=== PATIENT | male | born 1955 ===

== ENCOUNTER 2018-03-30 05:34 | Day surgery (SDC) | payer OTHER ==
--- NOTE | 2018-03-24 22:47 | HP ---
CC: Dr. Lucas at [facility] * ADMISSION HISTORY AND PHYSICAL: DATE OF ADMISSION: 03/30/18 ATTENDING SURGEON: Dr. Edmund Garza * (NATHALIA Calvin, dictating). CHIEF COMPLAINT: Right inguinal hernia. HISTORY OF PRESENT ILLNESS: This is a 62-year-old male who beginning about a year ago noticed a bulge in the right groin. This is present most all the time when he is upright and active, but self-reduces when he is supine. It has increased in size somewhat but has been minimally symptomatic, i.e., minor discomfort but no actual pain. He has not had any symptoms to suggest incarceration or strangulation. He was seen in the office by Dr. Garza on 12/09, at which time, exam confirmed the presence of a large reducible right inguinal hernia. No hernia was noted on the left. Dr. Garza has discussed with him the indications for surgery, the options for repair, the risks, benefits, and alternatives. He understands the expected perioperative course and would like to proceed as scheduled with laparoscopic repair of right inguinal hernia with mesh. PAST MEDICAL HISTORY: Seasonal and environmental allergies, obstructive sleep apnea (on CPAP), obesity. PAST SURGICAL HISTORY: His only prior surgery is resection of a right parotid tumor (benign) in 1995. CURRENT MEDICATIONS: None (he does use fluticasone nasal spray, cetirizine, and Benadryl p.r.n. when his allergies are bothering him). DRUG ALLERGIES: None. FAMILY HISTORY: Negative for anesthesia problems, bleeding or clotting disorders. SOCIAL HISTORY: Patient is . 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 He denies use of tobacco. He drinks up to 500 mL of wine per day but less on some days. He denies any other recreational drug use. He does exercise, i.e., runs on an almost daily basis. REVIEW OF SYSTEMS: General: No recent constitutional symptoms or acute illnesses. Weight has been stable. HEENT: He has had recent dental work done but no other acute problems noted. Cardiovascular: No chest pain, palpitations , history of heart murmur, or hypertension. Respiratory: No history of asthma , chronic cough, or shortness of breath. GI: No problems reported. His last colonoscopy was 2016, at which time benign polyps were removed with a recommended 5-year followup. : No problems reported. Endocrine: No diabetes or thyroid dysfunction. PHYSICAL EXAMINATION GENERAL: Well-nourished, well-developed male, in no acute distress. VITAL SIGNS: Height 70.5 inches, weight 216 pounds. Blood pressure 124/80, pulse 58, respirations 16. HEENT: Pupils equal and round, reactive. EOMs intact. No conjunctival pallor. Oropharynx, teeth in good repair. No intraoral lesions. NECK: No lymphadenopathy, thyromegaly or masses. LUNGS: Clear to auscultation. No wheezes. HEART: Regular rate and rhythm. No murmur noted. ABDOMEN: Right inguinal hernia as noted per Dr. Garza's exam. No hernia on the left. He does have diastasis recti in the upper abdomen. The remainder of the abdomen is soft, nontender, and without palpable masses or organomegaly. GENITALIA: Not examined. RECTAL: Not done. BACK: No spinous process or CVA tenderness. EXTREMITIES: No edema. SKIN: Warm and dry, no suspicious rashes or lesions. NEUROLOGICAL: Grossly intact. IMPRESSION: Right inguinal hernia.. PLAN: Laparoscopic repair, right inguinal hernia with mesh. NATHALIA CALVIN [id number]/[facility] #: [id number] MTDD
[~2018-03-30 05:34] MED LIST: Buffered Lidocaine 0.9% SYRIN* 5 ML/SYR SYRINGE INTRADERM ONE
[2018-03-30] MEDS ORDERED: Lactated Ringers 1000 ML Bag* 1,000 ML IV SCH (06:00)
[2018-03-30] MEDS ORDERED: Acetaminophen TAB* 325 MG PO ONE (06:00)
[2018-03-30] MEDS ORDERED: Gabapentin CAP(*) 300 MG PO ONE (06:00)
[2018-03-30] MEDS ORDERED: Gabapentin CAP(*) 300 MG ONE (06:04)
[2018-03-30] MEDS ORDERED: ceFAZolin 2 GM PREMIX in ORs 2 GM/50 ML BAG IVPB ONE (06:04)
[2018-03-30] MEDS ORDERED: Acetaminophen TAB* 325 MG ONE (06:04)
[2018-03-30] MEDS ORDERED: Bupivacaine 0.25% W/EPI* 10 ML SDV ONE (06:34)
[2018-03-30] MEDS ORDERED: fentaNYL* 50 MCG/ML 2 ML VIAL (100 MCG VIAL) ONE (07:14)
[2018-03-30] MEDS ORDERED: Midazolam* 1 MG/ML 2 ML VIAL (2 MG) ONE ×2 (07:14→07:52)
[2018-03-30] MEDS ORDERED: Dexamethasone IV* 4 MG/ML 1 ML (4 MG) ONE ×2 (07:44→08:14)
[2018-03-30] MEDS ORDERED: Famotidine IV* 10 MG/ML 2 ML (20 mg) ONE (07:44)
[2018-03-30] MEDS ORDERED: Succinylcholine* 20 MG/ML 10 ML VIAL ONE (07:44)
[2018-03-30] MEDS ORDERED: Ketorolac INJ* 30 MG/ML 1 ML VIAL ONE (07:44)
[2018-03-30] MEDS ORDERED: Propofol* 10 MG/ML 20 ML BTL ONE (07:44)
[2018-03-30] MEDS ORDERED: Cisatracurium* 2 MG/ML MDV 5 ML ONE (07:44)
--- NOTE | 2018-03-30 08:41 | BRIEFOPN ---
Brief Operative Note - Surgery Procedures: Procedures Pre-OP Diagnoses: Right inguinal hernia Post-op Diagnosis: same Procedure: Laparoscopic right inguinal hernia repair with mesh Surgeon: Kayla Asst: Jose C Yootherenard: BULMARO Pool EBL: minimal IVF: 800cc LR Specimen: none Drains: none
[2018-03-30] MEDS ORDERED: DiMENhydriNATE IV* 50 MG/ML VIAL IV PUSH PRN (09:37)
[2018-03-30] MEDS ORDERED: Scopolamine 1.5 mg* PATCH TRANSDERM PRN (09:37)
[2018-03-30] MEDS ORDERED: fentaNYL* 50 MCG/ML 2 ML VIAL (100 MCG VIAL) IV PRN (09:37)
[2018-03-30] MEDS ORDERED: HYDROcodone/ACETAMIN 5-325 MG* 1 TAB PO PRN ×2 (09:37)
[2018-03-30] MEDS ORDERED: PROCHLORPERAZINE INJ 5 MG/ML 2 ML VIAL IV PRN (09:37)
[2018-03-30] MEDS ORDERED: Naloxone* 0.4 MG/ML 1 ML VIAL IV PRN (09:37)
[2018-03-30 10:45] VITALS: BP 136/81
--- NOTE | 2018-03-30 15:47 | OP ---
CC: Dr. Joey Lucas * DATE OF OPERATION: 03/30/18 - SDS DATE OF : 59 SURGEON: Edmund Garza MD STRATEGIC SOURCING CONSULTANT: Lizet Woodall NP ANESTHESIOLOGIST: Dr. Pool ANESTHESIA: General anesthesia. PRE-OP DIAGNOSIS: Right inguinal hernia. POST-OP DIAGNOSIS: Right inguinal hernia. OPERATIVE PROCEDURE: Laparoscopic right inguinal hernia repair with mesh. ESTIMATED BLOOD LOSS: Minimal. FLUIDS: 800 cc of crystalloid fluid given. SPECIMEN: None. DRAINS: None. DESCRIPTION OF PROCEDURE: The patient was identified in the preoperative area, he was marked, consent signed. He was then taken back to the operating room, placed on the operating room table in a supine position. Preoperative antibiotics were given. Sequential devices were placed on bilateral lower extremities. General anesthesia was induced. The patient's abdomen was clipped of hair and prepped and draped in the standard surgical fashion. A time -out was performed. An infraumbilical incision was made. This was deepened down to the anterior fascia on the right which was incised and entry into the preperitoneal plane was made. This was dissected with surgeon's finger and a 12-mm port was then inserted in the space. It was allowed to insufflate to a pressure of 12 mmHg. The patient tolerated the insufflation well. Camera was inserted and blunt dissection was carried out down to the pubic symphysis. Two additional 5-mm ports were then placed in the lower midline. Attention was turned towards the left side. The Max ligament was cleared off at this site, appeared intact. The Max ligament on the right was cleared off and a direct hernia was identified. We then opened up the area of [place] space laterally, identified the epigastric vessels and then returned back to the direct hernia. This was gently reduced and the tissue retracted out of the direct space. We then turned our attention to the indirect space. The dissection carried on until we saw the vas deferens. This included visualization of an indirect hernia that was then reduced. We placed an Endoloop 2-0 Vicryl over this and cut the hernia sac. I did not send this as a specimen. Next, the area with the whole myopectineal orifice cleared off. We then opened a large Bard 3DMax mesh, placed it into the preperitoneal plane and allowed it to unfurl. This was tacked at Max ligament with two absorbable tacks, and it laid laterally without any evidence of wrinkling. It covered the full space that we intended it to and we allowed the preperitoneal plane to collapse of air. Trocars were removed under direct vision. We then closed the anterior fascia at the umbilical port site with 0 Polysorb suture in a [id number] fashion, and 3 incisions were then closed with 4-0 Monocryl subcuticular sutures followed by Steri- Strips and sterile dressing. The patient tolerated the procedure well, was transferred to the PACU. [id number]/[facility] #: [id number] SALMA
[2018-04-02] MEDS ORDERED: Scopolamine PATCH Remove* 1 NOTE MISC PATCH OFF ONE (09:38)
== END 2018-03-30 11:12 | disposition home or self-care (01) ==
LOC: OR 05:34
PROVIDERS: ATTEND Surgery
DX: K40.90 Unilateral inguinal hernia, without obstruction or gangrene, not specified as recurrent (principal); G47.33 Obstructive sleep apnea (adult) (pediatric); J30.89 Other allergic rhinitis; E66.9 Obesity, unspecified
CPT/HCPCS: A9270-GY; C1781; J0330; J0690; J1100; J1885; J2250; J2704; J3010

== ENCOUNTER 2019-05-03 10:25 | Day surgery (SDC) | payer OTHER ==
--- NOTE | 2019-04-21 10:18 | HP ---
CC: Dr. Villavicencio [facility] * ADMISSION HISTORY AND PHYSICAL: DATE OF ADMISSION: 05/03/19 ATTENDING SURGEON: Dr. Ralph Garza.* (DICTATED BY NATHALIA MOLINA) CHIEF COMPLAINT: Recurrent right inguinal hernia. HISTORY OF PRESENT ILLNESS: This is a 63-year-old male who underwent laparoscopic repair of right inguinal hernia with mesh in March [address] Garza. The patient did have an apparent hematoma in the right groin following surgery that was confirmed by ultrasound and that eventually resolved without any further issues. However, subsequently in the fall of last year, the patient noticed after coughing that there was a new bulge in the right groin that has persisted since. He was seen by Dr. Garza in January and exam at that time confirmed the presence of a recurrent right inguinal hernia. The patient states that it has been minimally symptomatic with minor discomfort noted only while driving and/or with coughing. He has not had any symptoms to suggest incarceration or strangulation. He has not felt the need to reduce the hernia at any time. Dr. Garza has discussed with him the indications for repair and the method thereof (open approach with mesh). He understands the risks, benefits, and alternatives and would like to proceed as scheduled with open repair right inguinal hernia with mesh. PAST MEDICAL HISTORY: 1. Seasonal and environmental allergies. 2. Mood disorder/depression. 3. Obstructive sleep apnea (on CPAP). 4. Obesity. PAST SURGICAL HISTORY: Right inguinal herniorrhaphy with mesh as noted above. Right parotid tumor (benign) in 1995. CURRENT MEDICATIONS: Prozac 20 mg once daily. He does use some antihistamines and other allergy medications as needed but not at the present time. DRUG ALLERGIES: None. FAMILY HISTORY: Negative for anesthesia problems, bleeding, or clotting disorders. SOCIAL HISTORY: The patient is . 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 He denies use of tobacco. He drinks up to 500 mL of wine per day, but less on some days. He denies any other recreational drug use. He does [employer] and when weather permits he runs regularly. REVIEW OF SYSTEMS: General: No recent constitutional symptoms or acute illnesses. He states that his weight did increase somewhat this past summer ( about 10 pounds). HEENT: No recent acute problems noted. Cardiovascular: No chest pain, palpitations, or history of heart murmur. He notes that his blood pressure is up slightly that he relates to his weight. This has not required medication. Respiratory: He uses CPAP for sleep apnea. No history of asthma, chronic cough or shortness of breath. GI: No problems reported. Last colonoscopy was in 2017 with removal of benign polyps and recommended 5-year followup. : No problems reported. Endocrine: No diabetes or thyroid dysfunction. PHYSICAL EXAMINATION GENERAL: Well-nourished, well-developed male, in no acute distress. VITAL SIGNS: Height 70.5 inches, weight 223 pounds. Blood pressure 138/76, pulse 68, temperature is 97. HEENT: Pupils equal, round, reactive. EOMs intact. No conjunctival pallor. Oropharynx: Teeth in good repair. No intraoral lesions. NECK: No lymphadenopathy, thyromegaly, or masses. LUNGS: Clear to auscultation. No wheezes. HEART: Regular rate and rhythm. No murmur noted. ABDOMEN: Obese, soft, nontender to palpation. He does have diastasis recti in the upper abdomen. The remainder of the abdomen is soft, nontender, without palpable masses or organomegaly with the exception of the right groin where there is a visible mass in the standing position. This reduces easily when he is supine. No palpable hernia on the left. GENITALIA: Otherwise normal. RECTAL: Not done. BACK: No spinous process or CVA tenderness. EXTREMITIES: No edema. NEUROLOGIC: Grossly intact. SKIN: Warm and dry. No suspicious rashes or lesions. IMPRESSION: Recurrent right inguinal hernia. PLAN: Open repair, right inguinal hernia with mesh. NATHALIA MOLINA [id number]/[facility] #: [id number] SALMA
[~2019-05-03 10:25] MED LIST changes: -Buffered Lidocaine 0.9% SYRIN* 5 ML/SYR SYRINGE INTRADERM ONE; +Buffered Lidocaine 1% SYRIN* 1 ML/SYRINGE INTRADERM ONE; +Famotidine IV* 10 MG/ML 2 ML (20 mg) IV ONE; +Lactated Ringers 1000 ML Bag* 1,000 ML IV SCH
[2019-05-03] MEDS ORDERED: Buffered Lidocaine 1% SYRIN* 1 ML/SYRINGE INTRADERM ONE (11:11)
[2019-05-03] MEDS ORDERED: Famotidine IV* 10 MG/ML 2 ML (20 mg) ONE (11:11)
[2019-05-03] MEDS ORDERED: ceFAZolin 2 GM in NS PREMIX(*) 2 GM/100 ML BAG IVPB ONE (11:11)
[2019-05-03] MEDS ORDERED: KETAMINE HCL* 50 MG/ML 10 ML VIAL ONE (11:29)
[2019-05-03] MEDS ORDERED: Ondansetron INJ* 2 MG/ML VIAL ONE (11:29)
[2019-05-03] MEDS ORDERED: Propofol* 10 MG/ML 20 ML BTL ONE (11:29)
[2019-05-03] MEDS ORDERED: Dexamethasone IV* 4 MG/ML 1 ML (4 MG) ONE (11:29)
[2019-05-03] MEDS ORDERED: Midazolam* 1 MG/ML 5 ML VIAL (5 MG) ONE (11:29)
[2019-05-03] MEDS ORDERED: Lidocaine 2% PF * 5 ML VIAL ONE (11:29)
[2019-05-03] MEDS ORDERED: fentaNYL* 50 MCG/ML 2 ML VIAL (100 MCG VIAL) ONE ×2 (11:29→12:59)
[2019-05-03] MEDS ORDERED: Ketorolac INJ* 30 MG/ML 1 ML VIAL ONE (11:29)
[2019-05-03] MEDS ORDERED: Lidocaine 1% INJ* 10 MG/ML 30 ML SDV ONE (12:19)
[2019-05-03] MEDS ORDERED: Bupivacaine 0.5% W/EPI SDV* 10 ML VIAL INJ ONE (12:19)
[2019-05-03] MEDS ORDERED: Bacitracin OINTMENT* 0.5% 0.5 oz TUBE ONE (12:20)
[2019-05-03] MEDS ORDERED: EPHEDrine (Pressors)* 50 MG/ML VIAL ONE (12:54)
[2019-05-03] MEDS ORDERED: Naloxone* 0.4 MG/ML 1 ML VIAL IV PRN (13:25)
[2019-05-03] MEDS ORDERED: fentaNYL* 50 MCG/ML 2 ML VIAL (100 MCG VIAL) IV PRN (13:25)
[2019-05-03] MEDS ORDERED: oxyCODONE/Acetamin 5/325 MG* TAB PO PRN (13:25)
[2019-05-03] MEDS ORDERED: Ondansetron INJ* 2 MG/ML VIAL IV PRN (13:25)
--- NOTE | 2019-05-03 14:59 | BRIEFOPN ---
Brief Operative/Procedure Note - Operation Details Pre-Op Diagnosis: Recurrent right inguinal hernia Post-Op Diagnosis: same; direct Procedures: open repair right inguinal hernia with mesh Surgeon(s)/Proceduralists: Kayla. Assist: NATHALIA Quinones; NATHALIA Lim Anesthesia: GET. IVF: 1500 ml RL Estimated Blood Loss: < 50 ml Findings: as above Specimen(s)/Culture(s) Description: none Complications: none
[2019-05-03 16:56] VITALS: BP 142/76
--- NOTE | 2019-05-04 03:10 | OP ---
CC: Primary care doctor; [facility] * DATE OF OPERATION: 05/03/19 - [facility] DATE OF : 59 SURGEON: Edmund Garza MD ASSISTANTS: Dr. Mata and NATHALIA Cintron ANESTHESIOLOGIST: Dr. Gotti. ANESTHESIA: General. PRE-OP DIAGNOSIS: Recurrent right inguinal hernia. POST-OP DIAGNOSIS: Recurrent right inguinal hernia. OPERATIVE PROCEDURE: Open right inguinal hernia repair with mesh. ESTIMATED BLOOD LOSS: Minimal. FLUIDS: Crystalloid fluid given, minimal amount. See anesthesia notes for details. SPECIMEN: None. DRAINS: None. COMPLICATIONS: None. DESCRIPTION OF PROCEDURE: The patient was identified in the preoperative area. He was marked accordingly. Consent was signed. He was brought to the operating room and placed on the operating table in the supine position. Preoperative antibiotics were given. Sequential devices were placed on bilateral lower extremities and general anesthesia was induced. The patient's right groin was then clipped off hair and prepped and draped in standard surgical fashion and a time-out was performed. An inguinal incision was made. This was deepened down through Magdy and Camper' s fascia right down to the external oblique aponeurosis laterally. A hernia defect extending through the external ring was identified. We cleared off surrounding tissue from this and then opened up the external oblique and made flaps both cephalad and caudad. The inguinal contents were isolated around a [place] drain and a large bulky lesion that we had seen exiting from the external ring was dissected free from the spermatic structures and appeared to be consistent with a direct hernia. This was all preperitoneal fat. It was ultimately resected as we isolated the edges of the direct defect. We did evaluate the spermatic structures for any indirect hernia and found none. Once the floor of the inguinal canal was cleared off and we had skeletonized the spermatic structures, we then utilized a large ProGrip right-sided mesh. This was placed in the appropriate fashion and sutured to the pubic tubercle. This unfurled superiorly and also inferiorly and around the spermatic cord re- creating the external ring. We tucked this under the external oblique aponeurosis. We sutured it on the shelving edge of the inguinal ligament, also superiorly in the transversalis fashion. The wound was then irrigated and the ilioinguinal nerve was ligated and the aponeurosis of external oblique was reapproximated with a running 2-0 Vicryl suture. The wound was closed in a standard fashion followed by Steri-Strips and sterile dressing. The patient tolerated the procedure well, was woken up in the OR. The testicle was brought down into the scrotum and he was moved to the PACU in stable condition. [id number]/[facility] #: [id number] [facility]
== END 2019-05-03 17:12 | disposition home or self-care (01) ==
LOC: OR 10:25
PROVIDERS: ATTEND Surgery
DX: K40.91 Unilateral inguinal hernia, without obstruction or gangrene, recurrent (principal); G47.33 Obstructive sleep apnea (adult) (pediatric); F32.9 Major depressive disorder, single episode, unspecified; E66.9 Obesity, unspecified; Z99.81 Dependence on supplemental oxygen
CPT/HCPCS: A9270-GY; C1781; J0690; J1100; J1885; J2250; J2405; J2704; J3010